=== PATIENT | female | born 1945 | race Caucasian/White ===

== ENCOUNTER 2019-04-19 05:09 | Inpatient (IN) ==
--- NOTE | 2019-04-12 13:54 | EKG Report ---
Test Performed on : 04/12/2019 1:49:34 PM Test Reason : PAT Blood Pressure : / mmHG Vent. Rate : 086 BPM Atrial Rate : 086 BPM P-R Int : 136 ms QRS Dur : 070 ms QT Int : 360 ms P-R-T Axes : 013 028 055 degrees QTc Int : 430 ms Normal sinus rhythm. Poor R-wave progression V3-V5 Abnormal ECG When compared with ECG of 05-JAN-2018 11:21, No significant change was found Confirmed by Hong PRATHER, Venkat Hubbard ([id number]) on 04/12/2019 8:54:31 PM
[2019-04-12 14:11] LABS: BASO# 0.02 X1000 (0.0-0.2); BASO% 0.4 % (0.0-0.8); EOS% 1.8 % (0.0-10.0); HEMOGLOBIN 11.8 g/dL (12.0-16.0); LYMPH# 1.03 X1000 (1.2-3.4); LYMPH% 18.3 % (20.5-51.1); MCH 31.8 PG (27-31); MCHC 32.8 g/dL (33-37); MONO% 14.2 % (1.7-9.3); MPV 9.1 FL (7.4-10.4); NEUT# 3.69 X1000 (1.4-6.5); NEUT% 65.3 % (42.2-75.2); PLT 296 X1000 (130-400); RBC 3.71 XMIL (4.2-5.4); WBC 5.64 X1000 (4.8-10.8)
[2019-04-12 14:40] LABS: CALCIUM 9.4 mg/dL (8.8-10.2); CREATININE 1.4 mg/dL (0.5-0.9); POTASSIUM 4.2 mmol/L (3.5-5.1)
[2019-04-19] MEDS ORDERED: INVANZ 1 GM/NS 1 GM/50 ML IVPB ONE (05:41)
[2019-04-19] MEDS ORDERED: LR 1,000 ML ONE ×2 (05:41→06:40)
[2019-04-19] MEDS ORDERED: ENTEREG ONE (05:41)
[2019-04-19] MEDS ORDERED: REGLAN ONE (05:41)
[2019-04-19] MEDS ORDERED: PEPCID ONE (05:41)
[2019-04-19] MEDS ORDERED: DIPRIVAN 1% ONE (06:07)
[2019-04-19] MEDS ORDERED: FENTANYL ONE (06:07)
[2019-04-19] MEDS ORDERED: QUELICIN (DOSE) ONE (06:19)
[2019-04-19] MEDS ORDERED: STERILE WATER INJ. ONE (06:19)
[2019-04-19] MEDS ORDERED: DECADRON ONE (06:19)
[2019-04-19] MEDS ORDERED: OFIRMEV 1000 MG/ISOTONIC SOLN 1,000 MG/100 ML BOTTLE ONE (06:19)
[2019-04-19] MEDS ORDERED: ZOFRAN ONE (06:19)
[2019-04-19] MEDS ORDERED: XYLOCAINE-MPF 2% ONE (06:19)
[2019-04-19] MEDS ORDERED: NORCURON ONE (06:19)
[2019-04-19] MEDS ORDERED: MARCAINE 0.5% ONE (06:21)
[2019-04-19] MEDS ORDERED: SODIUM CHLORIDE 0.9% 10 ML ONE (06:21)
[2019-04-19] MEDS ORDERED: EXPAREL 1.3% ONE (06:21)
[2019-04-19] MEDS ORDERED: SENSORCAINE 0.25%/EPI 1:200,000 ONE (06:39)
[2019-04-19] MEDS ORDERED: ROBINUL ONE (09:05)
[2019-04-19] MEDS ORDERED: NEOSTIGMINE ONE (09:05)
[2019-04-19 09:47] LABS: URINE SOURCE CATH
[2019-04-19 09:49] LABS: BILIRUBIN URINE NEGATIVE (NEGATIVE); BLOOD URINE NEGATIVE (NEGATIVE); COLOR YELLOW; GLUCOSE URINE NEGATIVE (NEGATIVE); KETONE URINE 10 mg/dL (NEGATIVE); LEUKOCYTES URINE SMALL (NEGATIVE); NITRITE URINE NEGATIVE (NEGATIVE); PH URINE 5.5; PROTEIN URINE NEGATIVE (NEGATIVE); SP GRAVITY URINE 1.021; TURBIDITY URINE CLEAR (CLEAR); UROBILINOGEN URINE NORMAL (NORMAL)
[2019-04-19 09:50] LABS: UR EPITHELIAL CELLS >10 /HPF (<10); URINE BACTERIA NEGATIVE /HPF; URINE RBC <10 /HPF (<10)
[2019-04-19] MEDS: DILAUDID ONE ×2 (11:19→11:22)
--- NOTE | 2019-04-19 11:21 | Diag Imaging Result Doc PS360 ---
EXAM: KUB ABDOMEN HISTORY: MISCOUNT IN OR TECHNIQUE: Portable abdomen three views COMPARISON: None. FINDINGS: There are midline skin tomas. A drainage catheter overlies the pelvis and there is a right lower quadrant ostomy. There are skin tomas in the right upper quadrant. No needle or other foreign body identified. Mild scoliosis with degenerative spine changes. IMPRESSION: No needle identified. Electronically signed by Brenden Mejia 04/19/2019 11:19 AM
[2019-04-19] MEDS ORDERED: NS 1,000 ML ONE (11:32)
[2019-04-19] MEDS: NS 1,000 ML IV SCH ×2 (13:00→23:17)
[2019-04-19] MEDS: OFIRMEV 1000 MG/ISOTONIC SOLN 1,000 MG/100 ML BOTTLE IV SCH ×2 (14:20→21:26)
[2019-04-19] MEDS: LOVENOX SUBQ SCH (14:22)
[2019-04-19] MEDS: ULTRAM PO PRN (18:40)
--- NOTE | 2019-04-19 18:53 | OPERATIVE NOTE ---
PROCEDURE DATE: 04/19/2019 PROCEDURE: 1. Laparoscopy with lysis of adhesions for 1 hour. 2. Mobilization of the splenic flexure. 3. Open low anterior colon resection. 4. Loop diverting ileostomy. 5. Repair of vaginal cuff. SURGEON: Dr. Destin MD. REVENUE INTEGRITY ANALYST: WAQAR Love. PREOPERATIVE DIAGNOSIS: Colovaginal fistula with diverticular disease. POSTOPERATIVE DIAGNOSIS: Colovaginal fistula with diverticular disease with multiple intraabdominal adhesions. DESCRIPTION OF PROCEDURE: Satisfactory general endotracheal anesthesia was achieved. The patient was placed in Edmundo stirrups. The abdomen was prepped and draped in a sterile fashion. We began near the umbilicus, anesthetized the skin, made a vertical incision, dissected down the fascia, scored the fascia, and introduced 11 trocar Optiview technique. We insufflated through this trocar. We were able to work through adhesions and introduced 11 trocar in the midepigastrium. We had to add a 5 trocar in the left side of the abdomen and then began taking adhesions down the back of the abdominal wall. We carefully took these adhesions down. There was 1 spot where we thought we made an enterotomy, so I did laparoscopically place a figure-of-8 3-0 silk stitch, but we continued to dissect the adhesions carefully from the back of the anterior abdominal wall all the way into the pelvis. This took an hour to accomplish that. After completing that, we then introduced a 5 trocar in the right lower quadrant. We placed the patient in Trendelenburg and turned the patient to the right. We then identified the white line of Toldt and used the LigaSure to divide the white line of Toldt going from the pelvic brim cephalad. As we started going up the descending colon, we reversed the patient's position and placed her in reverse Trendelenburg. We kept her turned to the right and we extended our incision all the way up to the splenic flexure. We then pulled the omentum out of the way. I was able to divide the tissue to the transverse colon to allow mobilization of the splenic flexure. We went from proximal to distal toward the splenic flexure; thereby, allowing us to mobilize the splenic flexure and sweep it down so that we would have more distance and more length on the colon as we did our sigmoid resection. When we were satisfied with the mobilization of splenic flexure, we then flattened the patient, desufflated and then switched to an open procedure. We then made a midline incision to incorporate 2 of our trocars sites. We entered the abdominal cavity carefully. We did identify the spot we had placed a silk stitch for the enterotomy and it was secure. We then placed our Bookwalter retractor, placed the patient in Trendelenburg and reflected the small bowel cephalad, and then further dissected the pelvic brim and the left pelvic wall sidewall. We identified the ureter and protected it from harm. On the right side, it was less stuck. We then began dissection behind the bladder and the vaginal cuff. This was quite stuck and we carefully dissected between the colon and these organs until we developed a plane and the colon from the back of the bladder and the vaginal cuff. This completely freed it from the anterior pelvic wall. We then looked into the pelvis and identified a spot in the proximal rectum that we thought would be in appropriate site for the anastomosis. We then scored the peritoneum on the right side and went back proximally to where we felt it would be appropriate to divide the colon we cleaned it off and used a TIMO blue cartridge 80 mm long to divide the colon there. We then used the ligature to divide the mesentery of the colon as we went from cephalad to caudad through the sigmoid mesentery. We continued distally until we reached the distal point of our dissection where we felt it would be appropriate to do the anastomosis. The proximal colon came down to the proximal rectum without tension. We then placed 3-0 silks in a Lembert fashion between the proximal rectum and the proximal colon. We then divided the colon and handed off the diseased segment. We then stitches tied these stitches between the proximal and distal colon. Some of the stitches pull- through indicative of the poor tissue turgor and made me more concerned about appropriate healing. So had added additional stitches to the seromuscular layer posteriorly. After completing that we then excised the staple line proximally. We used a 3-0 Polysorb running locking stitch posteriorly, changed to a [place] stitch anteriorly and finally a 3-0 silks in a Lembert fashion anteriorly to complete our 2-layered anastomosis. We changed gloves at this point. We irrigated out the pelvis. We looked at the back of the vaginal cuff and I placed some 2-0 Polysorb stitches to close the tissue over the vaginal cuff to be sure it was sealed. I then decided at this point, that I would do a diverting ileostomy because of what I felt to be poor tissue turgor and weakness to the tissue and with her history of poor healing, I felt it would be safest to do a diverting loop ileostomy. We then incised the adhesions in between the small bowel loops in the ilium so that we could bring up a loop easily. The site we brought up was the site where we had placed the stitches for the small enterotomy. We did grasp the skin of the right mid abdomen, excised the small hole of skin for stoma, dissected down to the fascia and incised the anterior rectus sheath vertically and a little bit transversely, spread the rectus muscle and then opened the posterior rectus sheath as well. We then were able to deliver the loop of ilium grasping it with a Jonathan without difficulty and without tension. We placed 1 of those butterfly bars underneath the loop. Also, inferior to this, I introduced a hemostat through the abdominal wall and laid a Tres drain into the pelvis. We secured it to the skin with a 2-0 silk. We were satisfied. Hemostasis was acceptable. I looked in the left upper quadrant. It was hemostatic. We then closed the peritoneum with 2-0 chromic. We closed the fascia with a running #2 Prolene. We irrigated out the subcutaneous tissue. We closed the epigastric trocar site with a 2-0 Polysorb fascial stitch. We then closed the skin incisions with tomas. We then placed a flange around the stoma, incised the ilium to open it and then placed the bag over it. A sterile dressing was placed on the midline wound. Ms. Castillo tolerated the procedure satisfactory and was sent to the recovery room in satisfactory condition. cc: Tip Weir MD
[2019-04-19] MEDS: PERIDEX MT SCH (21:27)
[2019-04-19] MEDS: ZOCOR PO SCH (21:27)
--- NOTE | 2019-04-19 22:31 | GENERAL SURGERY PROGRESS NOTE ---
DATE: 04/19/2019 It is 4:30 in the afternoon. Ms. Castillo is sleeping, but she is easily aroused. She is comfortable. Her hemodynamics are good. Bandage is dry. Her stoma is viable. Drainage is serosanguineous. We will check her labs in the morning, but I am pleased with her progress as is she. cc: Tip Weir MD
[2019-04-20] MEDS: OFIRMEV 1000 MG/ISOTONIC SOLN 1,000 MG/100 ML BOTTLE IV SCH ×2 (02:05→09:33)
[2019-04-20] MEDS: ULTRAM PO PRN ×2 (06:02→21:17)
[2019-04-20] MEDS: NS 1,000 ML IV SCH ×3 (07:01→23:20)
[2019-04-20 07:22] LABS: BASO# 0.01 X1000 (0.0-0.2); BASO% 0.1 % (0.0-0.8); EOS# 0.01 X1000 (0.0-0.7); EOS% 0.1 % (0.0-10.0); HEMOGLOBIN 8.8 g/dL (12.0-16.0); LYMPH# 0.77 X1000 (1.2-3.4); LYMPH% 9.4 % (20.5-51.1); MCH 30.1 PG (27-31); MCHC 31.4 g/dL (33-37); MCV 95.9 FL (81-99); MONO# 1.11 X1000 (0.11-0.59); MONO% 13.6 % (1.7-9.3); MPV 9.6 FL (7.4-10.4); NEUT# 6.25 X1000 (1.4-6.5); NEUT% 76.8 % (42.2-75.2); PLT 263 X1000 (130-400); RBC 2.92 XMIL (4.2-5.4); RDW 12.6 % (11.5-14.5); WBC 8.15 X1000 (4.8-10.8)
[2019-04-20 08:18] LABS: AGAP 12; BUN 13 mg/dL (8-22); CALCIUM 7.6 mg/dL (8.8-10.2); CHLORIDE 105 mmol/L (98-107); COSMO 274; CREATININE 0.8 mg/dL (0.5-0.9); ESTIMATED GFR > 60; GLUCOSE 92 mg/dL (70-104); POTASSIUM 3.7 mmol/L (3.5-5.1); SODIUM 137 mmol/L (136-145); TCO2 20 mmol/L (25-35)
[2019-04-20] MEDS: PERIDEX MT SCH ×2 (09:33→21:16)
[2019-04-20] MEDS: VITAMIN D PO SCH (09:33)
[2019-04-20] MEDS: CITRACAL + D PO SCH (09:33)
[2019-04-20] MEDS: PRINZIDE 20/12.5MG PO SCH ×2 (09:33→16:09)
[2019-04-20] MEDS: COLACE PO SCH (09:33)
[2019-04-20] MEDS: THERA M PLUS PO SCH (09:34)
[2019-04-20] MEDS: ENTEREG PO SCH ×2 (09:34→21:17)
[2019-04-20] MEDS: KLOR-CON PO SCH (09:34)
[2019-04-20] MEDS: DILAUDID IV PRN ×2 (09:52→16:07)
[2019-04-20] MEDS: AROMASIN PO SCH (09:52)
--- NOTE | 2019-04-20 13:26 | GENERAL SURGERY PROGRESS NOTE ---
DATE: 04/20/2019 SUBJECTIVE: Ms. Castillo is postop day 1 from a colovaginal fistula repair and ileostomy. Her primary complaint today is her right arm, feeling discomfort and tight. It does not look particularly swollen. She has good radial pulse. OBJECTIVE: Lungs are clear. Heart is regular rate and rhythm. Bandages are dry. Abdomen is appropriately tender. Ileostomy is viable. Drainage is serosanguineous. Legs feel okay. DIAGNOSTIC DATA: Laboratory data reveals a hemoglobin of 8.8, hematocrit 28. Chemistry is fine. ASSESSMENT: Right arm discomfort. This may be the arm she had her blood pressure cuff on. We will image it to be certain she has no DVT. She can have ice chips. Tomorrow, we will get her Patel out. She needs to sit on the side of the bed today. Surgical associates will cover in my absence over the weekend. cc: Tip Weir MD
[2019-04-20] MEDS: LOVENOX SUBQ SCH (16:09)
[2019-04-20] MEDS: ZOFRAN IV PRN (19:07)
[2019-04-20] MEDS: ZOCOR PO SCH (21:16)
--- NOTE | 2019-04-20 22:11 | Extremity Venous Study ---
PROCEDURE NAME: Venous U/S Right Arm - 04/20/2019 BROTH MIXER: Cory. REQUESTING PHYSICIAN: Dr. Weir. INDICATIONS: Pain and edema. FINDINGS: Deep and superficial veins of the right neck and upper extremity were visualized. The vessels appear compressible with forward flow, and no evidence of intraluminal thrombus. SUMMARY: No deep or superficial venous thrombosis in the right upper extremity or neck. cc: MD Tip Fritz MD
[2019-04-21] MEDS: ULTRAM PO PRN ×2 (03:23→15:18)
[2019-04-21] MEDS: ZOFRAN IV PRN (06:47)
[2019-04-21 07:59] LABS: BASO# 0.01 X1000 (0.0-0.2); BASO% 0.1 % (0.0-0.8); EOS# 0.03 X1000 (0.0-0.7); EOS% 0.3 % (0.0-10.0); HEMATOCRIT 28.7 % (37.0-47.0); HEMOGLOBIN 9.2 g/dL (12.0-16.0); IMM GRAN# 0.03 X1000 (0.0-0.04); IMM GRAN% 0.3 % (0.0-0.5); LYMPH# 0.74 X1000 (1.2-3.4); LYMPH% 8.5 % (20.5-51.1); MCH 31.1 PG (27-31); MCHC 32.1 g/dL (33-37); MONO# 0.99 X1000 (0.11-0.59); MONO% 11.3 % (1.7-9.3); MPV 9.5 FL (7.4-10.4); NEUT# 6.93 X1000 (1.4-6.5); NEUT% 79.5 % (42.2-75.2); PLT 259 X1000 (130-400); RBC 2.96 XMIL (4.2-5.4); RDW 12.5 % (11.5-14.5); WBC 8.73 X1000 (4.8-10.8)
[2019-04-21] MEDS: PERIDEX MT SCH ×2 (10:56→21:22)
[2019-04-21] MEDS: COLACE PO SCH (10:56)
[2019-04-21] MEDS: CITRACAL + D PO SCH (10:56)
[2019-04-21] MEDS: VITAMIN D PO SCH (10:56)
[2019-04-21] MEDS: KLOR-CON PO SCH (10:56)
[2019-04-21] MEDS: THERA M PLUS PO SCH (10:58)
[2019-04-21] MEDS: PRINZIDE 20/12.5MG PO SCH (10:58)
[2019-04-21] MEDS: ENTEREG PO SCH ×2 (10:58→21:22)
[2019-04-21] MEDS: AROMASIN PO SCH (11:03)
[2019-04-21] MEDS: NS 1,000 ML IV SCH (13:49)
--- NOTE | 2019-04-21 14:44 | GENERAL SURGERY PROGRESS NOTE ---
DATE: 04/21/2019 SUBJECTIVE: She is doing okay, is a little sore. Ostomy has begun putting out some liquid in there. No more drainage per vagina. Her Patel is clear. OBJECTIVE: No fevers. No tachycardia. I reviewed her labs. White count is 8, hematocrit 28, platelets 259,000. ASSESSMENT AND PLAN: A 74-year-old female status post repair of colovaginal fistula with a diverting loop ileostomy. We will start her on clear liquids, discontinue her Patel catheter today. Encourage her to be out of bed and ambulating. Her ostomy output has begun, but we will monitor for increasing output and start motility agents as needed. I reviewed her medications. She is on Lovenox. We will continue to follow her closely going forward. cc: MD Tip Fritz MD
[2019-04-21] MEDS: LOVENOX SUBQ SCH (15:13)
[2019-04-21] MEDS: ZOCOR PO SCH (21:22)
[2019-04-22] MEDS: ULTRAM PO PRN ×3 (01:46→21:44)
[2019-04-22] MEDS: NS 1,000 ML IV SCH ×2 (03:28→21:45)
[2019-04-22] MEDS: PERIDEX MT SCH ×2 (10:12→21:45)
[2019-04-22] MEDS: THERA M PLUS PO SCH (10:12)
[2019-04-22] MEDS: KLOR-CON PO SCH (10:12)
[2019-04-22] MEDS: VITAMIN D PO SCH (10:12)
[2019-04-22] MEDS: CITRACAL + D PO SCH (10:13)
[2019-04-22] MEDS: AROMASIN PO SCH (10:14)
[2019-04-22] MEDS: PRINZIDE 20/12.5MG PO SCH (10:35)
[2019-04-22] MEDS: LOVENOX SUBQ SCH (12:41)
--- NOTE | 2019-04-22 15:07 | GENERAL SURGERY PROGRESS NOTE ---
DATE: 04/22/2019 SUBJECTIVE: Doing well. Ileostomy output has been high, 600 mL. OBJECTIVE: Her abdomen is soft. She feels well. She is ambulating, tolerating a diet. I reviewed her labs. ASSESSMENT AND PLAN: A 74-year-old female with a colovaginal fistula repair with diverting loop ileostomy. We will monitor ileostomy output. I will stop her Entereg and her Colace. If output remains high, we may need to start Imodium. Otherwise, continue intravenous hydration, strict intakes and outputs. cc: MD Tip Fritz MD
[2019-04-22] MEDS: ZOCOR PO SCH (21:45)
[2019-04-23] MEDS: KLOR-CON PO SCH ×2 (07:54→08:17)
[2019-04-23] MEDS: NS 1,000 ML IV SCH (07:54)
[2019-04-23] MEDS: VITAMIN D PO SCH ×2 (07:54→08:16)
[2019-04-23] MEDS: CITRACAL + D PO SCH ×2 (07:54→08:17)
[2019-04-23] MEDS: THERA M PLUS PO SCH ×2 (07:54→08:17)
[2019-04-23] MEDS: AROMASIN PO SCH ×2 (07:55→08:16)
[2019-04-23] MEDS: PERIDEX MT SCH ×3 (07:55→22:13)
[2019-04-23] MEDS ORDERED: NS 1,000 ML IV SCH (08:13)
[2019-04-23] MEDS: PRINZIDE 20/12.5MG PO SCH (08:16)
--- NOTE | 2019-04-23 12:15 | GENERAL SURGERY PROGRESS NOTE ---
DATE: 04/23/2019 SUBJECTIVE: Ms. Castillo is afebrile. Hemodynamics are good. She does not have much appetite. She has taken liquids satisfactorily. Her ileostomy is functioning her drain is serous in character. Intake 2718, output 2155. PLAN: The plan is to reduce her IV to KVO. We will advance her diet to regular. We will remove her drain today. The ileostomy nurse will see her once again. We will keep her total tomorrow in preparation for a discharge. Home health will have to be involved at discharge. cc: Tip Weir MD
[2019-04-23] MEDS: LOVENOX SUBQ SCH (14:43)
[2019-04-23] MEDS: ULTRAM PO PRN ×2 (14:48→22:13)
[2019-04-23] MEDS: ZOCOR PO SCH (22:13)
[2019-04-24] MEDS ORDERED: FLU VACCINE IM ONE (08:08)
[2019-04-24] MEDS: ULTRAM PO PRN (09:06)
[2019-04-24] MEDS: THERA M PLUS PO SCH (09:06)
[2019-04-24] MEDS: VITAMIN D PO SCH (09:06)
[2019-04-24] MEDS: CITRACAL + D PO SCH (09:06)
[2019-04-24] MEDS: KLOR-CON PO SCH (09:06)
[2019-04-24] MEDS: PERIDEX MT SCH (09:06)
[2019-04-24] MEDS: PRINZIDE 20/12.5MG PO SCH ×2 (09:06→09:07)
[2019-04-24] MEDS: AROMASIN PO SCH (09:07)
[2019-04-24 11:42] VITALS: BP 116/59
--- NOTE | 2019-04-24 12:21 | GENERAL SURGERY PROGRESS NOTE ---
DATE: 04/24/2019 She took some solid food yesterday. Her ileostomy is functioning. Her wound looks fine. She is afebrile. We will allow her to go home today after the stoma nurse sees her. We discussed wound care, activity, and diet. She will return to see me in a week. cc: Tip Weir MD
--- NOTE | 2019-04-30 15:04 | DISCHARGE SUMMARY ---
ADMISSION DATE: 04/19/2019 DISCHARGE DATE: 04/24/2019 PRIMARY DISCHARGE DIAGNOSIS: Colovaginal fistula. PRIMARY PROCEDURE: Laparoscopy, lysis of adhesions, mobilization of splenic flexure, open low anterior colon resection and diverting loop ileostomy, repair of vaginal cuff. HOSPITAL COURSE: This patient was admitted due to a colovaginal fistula. She underwent outpatient prep. She was admitted the morning of the 19 of April. She underwent the above- noted procedure uneventfully. Postoperatively, she did generally well. We did place a drain at the time of her surgery. She had only serosanguineous output. On the first postoperative day, she complained some arm discomfort and venous image showed no evidence of DVT. We felt this is probably just due to the blood pressure cuff. We started on clear liquids. She started putting out through her ileostomy satisfactorily. We removed her Patel on the second postoperative day. We advanced her diet subsequently and mobilized from bed. By 04/24, it was felt she could be discharged home. The stoma nurse it had seen her and educated her regarding her ileostomy. Her wound was fine. DISPOSITION: She was discharged home on the to follow up with me within a week. Home health will assist her with her ileostomy at home. cc: Tip Weir MD
== END 2019-04-24 12:09 | disposition home health service (06) | DRG 331 ==
LOC: SURHOLD 05:09 → 4N 11:57
PROVIDERS: ADMIT Surgery; ATTEND Surgery
PROC: GE.COLS (2019-04-19 06:51)

== ENCOUNTER 2019-04-26 13:38 | Inpatient (IN) ==
[2019-04-26] MEDS ORDERED: MORPHINE IV PRN (14:32)
[2019-04-26] MEDS: PHENERGAN IV PRN ×2 (15:17→20:59)
[2019-04-26] MEDS: REGLAN IV SCH ×2 (15:18→20:42)
[2019-04-26] MEDS: SODIUM CHLORIDE 0.9% INJ PRN (15:19)
[2019-04-26] MEDS ORDERED: CLINIMIX E 4.25%-5% SOLUTION 1,000 ML IV SCH (17:00)
[2019-04-26] MEDS: ULTRAM PO PRN (18:11)
[2019-04-26] MEDS: NS + KCL 20 MEQ 1,000 ML IV SCH (18:13)
[2019-04-27] MEDS: PHENERGAN IV PRN ×3 (03:26→17:06)
[2019-04-27] MEDS: REGLAN IV SCH ×4 (03:27→20:58)
[2019-04-27 06:36] LABS: URINE SOURCE CLEAN CATCH
[2019-04-27 06:39] LABS: BILIRUBIN URINE NEGATIVE (NEGATIVE); BLOOD URINE NEGATIVE (NEGATIVE); CLARITY CLEAR (CLEAR); COLOR YELLOW; GLUCOSE URINE NEGATIVE (NEGATIVE); KETONE URINE NEGATIVE (NEGATIVE); LEUKOCYTES URINE NEGATIVE (NEGATIVE); NITRITE URINE NEGATIVE (NEGATIVE); PROTEIN URINE NEGATIVE (NEGATIVE); SP GRAVITY URINE >= 1.030; UROBILINOGEN URINE 0.2 EU/dL (0.2-1.0)
[2019-04-27 06:49] LABS: URINE EPITHELIAL CELLS <10 /HPF (<10); URINE RBC <10 /HPF (<10)
[2019-04-27 06:50] LABS: URINE BACTERIA 2+ /HFP; URINE CAST NONE SEEN /LPF; URINE CRYSTAL NONE SEEN /HPF; URINE YEAST PRESENT /HPF
[2019-04-27 07:09] LABS: BASO# 0.01 X1000 (0.0-0.2); BASO% 0.1 % (0.0-0.8); EOS# 0.06 X1000 (0.0-0.7); EOS% 0.6 % (0.0-10.0); HEMOGLOBIN 11.4 g/dL (12.0-16.0); IMM GRAN# 0.08 X1000 (0.0-0.04); IMM GRAN% 0.8 % (0.0-0.5); LYMPH# 0.99 X1000 (1.2-3.4); LYMPH% 9.6 % (20.5-51.1); MCH 31.1 PG (27-31); MCHC 32.6 g/dL (33-37); MCV 95.6 FL (81-99); MONO# 1.18 X1000 (0.11-0.59); MONO% 11.4 % (1.7-9.3); MPV 9.5 FL (7.4-10.4); NEUT# 8.01 X1000 (1.4-6.5); NEUT% 77.5 % (42.2-75.2); PLT 518 X1000 (130-400); RBC 3.66 XMIL (4.2-5.4); RDW 13.6 % (11.5-14.5); WBC 10.33 X1000 (4.8-10.8)
[2019-04-27 07:22] LABS: AGAP 14; BUN 23 mg/dL (8-22); CALCIUM 9.6 mg/dL (8.8-10.2); CHLORIDE 99 mmol/L (98-107); COSMO 281; CREATININE 0.9 mg/dL (0.5-0.9); ESTIMATED GFR > 60; GLUCOSE 120 mg/dL (70-104); POTASSIUM 3.8 mmol/L (3.5-5.1); SODIUM 138 mmol/L (136-145); TCO2 25 mmol/L (25-35)
[2019-04-27] MEDS: NS + KCL 20 MEQ 1,000 ML IV SCH (07:32)
[2019-04-27] MEDS: SODIUM CHLORIDE 0.9% INJ PRN (09:30)
--- NOTE | 2019-04-27 13:54 | GENERAL SURGERY PROGRESS NOTE ---
DATE: 04/27/2019 Ms. Castillo is feeling a little bit better. Still has some nausea. Her hemodynamics are okay. OBJECTIVE: She is afebrile, heart rate 77, blood pressure 122/59. Her bowel sounds are present. She is putting liquid out her ileostomy bag. LABORATORY DATA: Shows a white count 65456, hemoglobin 11.4. Potassium 3.8, chloride 99, BUN 23, creatinine 0.9. PLAN: Increase her Clinimix. Decrease her regular IV fluids. She has clear liquids as she desires. We will order some IV Protonix. Dr. Ricardo is to cover the weekend. cc: Tip Weir MD
[2019-04-27] MEDS: CLINIMIX E 4.25%-5% SOLUTION 1,000 ML IV SCH (14:19)
[2019-04-27] MEDS: PROTONIX IV SCH (14:28)
[2019-04-28] MEDS: REGLAN IV SCH ×4 (03:00→20:09)
[2019-04-28] MEDS: CLINIMIX E 4.25%-5% SOLUTION 1,000 ML IV SCH ×2 (03:59→15:09)
[2019-04-28 06:08] LABS: BASO# 0.02 X1000 (0.0-0.2); BASO% 0.2 % (0.0-0.8); EOS% 4.5 % (0.0-10.0); HEMATOCRIT 31.8 % (37.0-47.0); HEMOGLOBIN 10.4 g/dL (12.0-16.0); LYMPH# 0.87 X1000 (1.2-3.4); LYMPH% 9.7 % (20.5-51.1); MCHC 32.7 g/dL (33-37); MCV 97.8 FL (81-99); MONO# 1.33 X1000 (0.11-0.59); MONO% 14.8 % (1.7-9.3); MPV 9.2 FL (7.4-10.4); NEUT# 6.35 X1000 (1.4-6.5); NEUT% 70.8 % (42.2-75.2); PLT 426 X1000 (130-400); RBC 3.25 XMIL (4.2-5.4); RDW 13.6 % (11.5-14.5); WBC 8.97 X1000 (4.8-10.8)
[2019-04-28 06:14] LABS: AGAP 11; BUN 25 mg/dL (8-22); CALCIUM 8.8 mg/dL (8.8-10.2); CHLORIDE 100 mmol/L (98-107); COSMO 270; CREATININE 0.8 mg/dL (0.5-0.9); ESTIMATED GFR > 60; GLUCOSE 117 mg/dL (70-104); POTASSIUM 4.2 mmol/L (3.5-5.1); SODIUM 132 mmol/L (136-145); TCO2 21 mmol/L (25-35)
[2019-04-28] MEDS ORDERED: TYLENOL PO PRN (07:59)
--- NOTE | 2019-04-28 09:22 | PROGRESS NOTE ---
DATE: 04/28/2019 SUBJECTIVE: Ms. Lilliana Castillo is a patient Dr. Weir, who had a low anterior colon resection with diverting loop ileostomy. She has had to be readmitted because of postoperative ileus. She still has some abdominal distention, but she is tolerating liquids and would like her diet advanced. She is receiving peripheral nutrition. All incisions are healing well. Her ileostomy is somewhat swollen, but it is functional with fluid output. OBJECTIVE: Her heart rate is 78, blood pressure 122/63, O2 saturation 97%. She is afebrile. DIAGNOSTIC DATA: Her white blood cell count is normal. Hematocrit is 32%. Electrolytes are within normal limits with a BUN of 25 and creatinine 0.8. PLAN: We will advance her diet. We will leave her peripheral nutrition going at this time and increase her activity. cc: MD Tip Brannon MD
[2019-04-28] MEDS: SODIUM CHLORIDE 0.9% INJ SCH (15:11)
[2019-04-28] MEDS: PROTONIX IV SCH (15:11)
[2019-04-28] MEDS: NS + KCL 20 MEQ 1,000 ML IV SCH (18:45)
[2019-04-28] MEDS: PHENERGAN IV PRN (18:58)
[2019-04-28] MEDS: ULTRAM PO PRN (22:21)
[2019-04-29] MEDS: REGLAN IV SCH ×4 (02:33→20:14)
[2019-04-29] MEDS: CLINIMIX E 4.25%-5% SOLUTION 1,000 ML IV SCH ×3 (05:58→19:05)
--- NOTE | 2019-04-29 09:42 | PROGRESS NOTE ---
DATE: 04/29/2019 Ms. Lilliana Castillo is status post colon resection for a colovaginal fistula per Dr. Weir. She has diverting loop ileostomy. This ileostomy is functioning but she is not eating that well. She is on peripheral fluids and nutrition. Her incision is healing well and her ostomy looks good and it is viable. Her abdomen is mostly soft. Her heart rate is 90, blood pressure 117/64, O2 saturation 99%. She is afebrile. She is on a regular diet that I started yesterday. She has not eaten much. She is still on peripheral nutrition. She is becoming more active. She is voiding on her own. cc: MD Tip Brannon MD
[2019-04-29] MEDS: PROTONIX IV SCH (12:57)
[2019-04-29] MEDS: SODIUM CHLORIDE 0.9% INJ SCH (16:44)
[2019-04-29] MEDS: ULTRAM PO PRN (16:44)
[2019-04-29] MEDS: PHENERGAN IV PRN (16:44)
[2019-04-29] MEDS: NS + KCL 20 MEQ 1,000 ML IV SCH (20:15)
[2019-04-30] MEDS: REGLAN IV SCH ×5 (01:58→22:16)
[2019-04-30] MEDS: MEGACE LIQUID PO SCH ×2 (08:58→22:16)
--- NOTE | 2019-04-30 08:59 | GENERAL SURGERY PROGRESS NOTE ---
DATE: 04/30/2019 SUBJECTIVE: Ms. Castillo says she feels better. She is less nauseated then she was. Her appetite is still not very good. OBJECTIVE: Her abdomen is soft, and negligibly tender. Her hemodynamics are good. She is putting stool into her ileostomy. PLAN: The plan will be to get an x-ray of her abdomen today and I will put her on appetite stimulant in hopes of possibly getting her out by tomorrow. cc: Tip Weir MD
[2019-04-30] MEDS: LOVENOX SUBQ SCH (09:03)
[2019-04-30] MEDS: ULTRAM PO PRN (12:54)
[2019-04-30] MEDS: PROTONIX IV SCH (13:01)
[2019-04-30] MEDS: PHENERGAN IV PRN (13:01)
[2019-04-30] MEDS: CLINIMIX E 4.25%-5% SOLUTION 1,000 ML IV SCH (13:01)
[2019-05-01] MEDS: REGLAN IV SCH ×2 (05:46→08:39)
[2019-05-01] MEDS: CLINIMIX E 4.25%-5% SOLUTION 1,000 ML IV SCH (05:55)
[2019-05-01 07:42] VITALS: BP 117/66
--- NOTE | 2019-05-01 08:02 | GENERAL SURGERY PROGRESS NOTE ---
DATE: 05/01/2019 SUBJECTIVE: Ms. Castillo says she feels better. She still has some nausea but she is taking more by mouth. Her x-ray is ordered for this morning. PLAN: Tentatively plan to let her go home this afternoon with some antinausea medication. Her tomas will be removed today. cc: Tip Weir MD
[2019-05-01] MEDS: LOVENOX SUBQ SCH (08:38)
[2019-05-01] MEDS: MEGACE LIQUID PO SCH (08:39)
--- NOTE | 2019-05-01 09:00 | Diag Imaging Result Doc PS360 ---
EXAM: FLAT/UPRIGHT ABD/1 VIEW CHEST 05/01/2019 HISTORY: post op nausea; ileus TECHNIQUE: Flat and upright abdomen with PA chest COMMENT: There are surgical skin clips in the midline over the pelvis and in the right upper mid and right upper quadrant of the abdomen. The distended small bowel loops which were demonstrated on 04/26/2019 have diminished. There is no evidence of organomegaly or mass. There is some apparent gas in the distal colon. There are surgical clips in both axillary regions. The heart size and pulmonary vascularity are within normal limits. The lungs appear to be clear and are much better expanded than on 02/25/2012. IMPRESSION: Improving ileus. Electronically signed by Manuel Loving 05/01/2019 8:57 AM
[2019-05-01] MEDS: PROTONIX IV SCH (13:02)
[2019-05-01] MEDS: SODIUM CHLORIDE 0.9% INJ SCH (13:02)
--- NOTE | 2019-05-15 06:51 | DISCHARGE SUMMARY ---
ADMISSION DATE: 04/26/2019 DISCHARGE DATE: 05/01/2019 PRIMARY DISCHARGE DIAGNOSIS: Postoperative ileus with nausea and vomiting. HISTORY: This is a pleasant 74-year-old white female, who underwent a laparoscopy lysis of adhesions, mobilization of splenic flexure, low anterior colon resection, loop diverting ileostomy, and repair of vaginal cuff for a colovaginal fistula on 04/19/2019. She was discharged, but at home has failed to thrive and has developed increasing nausea and vomiting. Therefore, we are readmitting her to the hospital due to her vomiting, and inability to eat. Following her admission, she was placed for IV hydration. We gave her nausea medication including scheduling Reglan. We did put her on Clinimix for nutrition. We also put her on IV Protonix. We gave her clear liquids as she desired as initially she did not want any. Her white count was normal. Over the course of the 5 days of hospitalization, she gradually improved with regarding her nausea. She did put out some liquid in her ileostomy. We did give her an appetite stimulant to help assist with this. By 05/01 because of her progress and her inability to hold down food, and to control her nausea it was felt she could be discharged home. She will be given Phenergan to take home because this seems to work the best for her. We will order an appetite stable at home if needed. She will return to see me in the office in followup. Her ileostomy continues to function satisfactorily. cc: Tip Weir MD
== END 2019-05-01 13:42 | disposition home or self-care (01) | DRG 394 ==
LOC: DIRADM 13:38 → EDIPHOLD 14:00 → 4N 17:39
PROVIDERS: ADMIT Surgery; ATTEND Surgery

== ENCOUNTER 2019-05-29 10:04 | Inpatient (IN) ==
[2019-05-29] MEDS ORDERED: BENTYL IM ONE (10:29)
[2019-05-29] MEDS ORDERED: NS 1,000 ML IV ONE ×2 (10:29→12:06)
[2019-05-29] MEDS ORDERED: ZOFRAN IV ONE (10:29)
[2019-05-29] MEDS ORDERED: MORPHINE IV ONE (10:29)
--- NOTE | 2019-05-29 11:13 | Diag Imaging Result Doc PS360 ---
CHEST-PORTABLE - 05/29/2019 INDICATION: Upper abdominal pain COMPARISON: 05/01/2019 FINDINGS: Stable findings of bilateral mastectomy and bilateral axillary lymphadenectomy. Stable surgical suture lines in the right upper lobe. The lungs are clear. Heart size is normal. No pneumothorax or pleural effusion. IMPRESSION: No acute disease. Electronically signed by Ortiz Martin 05/29/2019 11:11 AM
[2019-05-29 11:23] LABS: INR 1.11; PROTIME 14.4 Seconds (11.0-16.0)
[2019-05-29 11:25] LABS: BASO# 0.01 X1000 (0.0-0.2); BASO% 0.1 % (0.0-0.8); HEMATOCRIT 44.3 % (37.0-47.0); HEMOGLOBIN 15.7 g/dL (12.0-16.0); IMM GRAN# 0.09 X1000 (0.0-0.04); IMM GRAN% 0.7 % (0.0-0.5); LYMPH# 0.76 X1000 (1.2-3.4); LYMPH% 5.6 % (20.5-51.1); MCH 31.2 PG (27-31); MCHC 35.4 g/dL (33-37); MCV 87.9 FL (81-99); MONO# 0.83 X1000 (0.11-0.59); MONO% 6.1 % (1.7-9.3); NEUT# 11.86 X1000 (1.4-6.5); NEUT% 87.5 % (42.2-75.2); PLT 489 X1000 (130-400); RBC 5.04 XMIL (4.2-5.4); RDW 12.7 % (11.5-14.5); WBC 13.55 X1000 (4.8-10.8)
[2019-05-29 11:56] LABS: ALB/GLOB RATIO 1.7; ALBUMIN 5.7 g/dL (3.5-5.0); CALCIUM 11.2 mg/dL (8.8-10.2); CREATININE 4.6 mg/dL (0.5-0.9); MAGNESIUM 2.5 mg/dL (1.5-2.7); TOTAL BILIRUBIN 0.75 mg/dL (0.20-1.00); TOTAL PROTEIN 9.1 g/dL (6.3-8.3)
[2019-05-29] MEDS ORDERED: ZOSYN 3.375 GM in NS 50 ML IV ONE (12:06)
[2019-05-29] MEDS ORDERED: VANCOMYCIN 1 GM/NS 1 GM/250 ML IVPB IV ONE (12:07)
--- NOTE | 2019-05-29 12:36 | Diag Imaging Result Doc PS360 ---
CT ABDOMEN/PELVIS W/O CONTRAST - 05/29/2019 INDICATION: abd pain, acute kidney injury COMPARISON: 02/08/2019 FINDINGS: There are numerous air cysts in the lung bases bilaterally with thin grajeda. No infiltrates. There is some stable scarring in the right lower lobe. Heart size is normal with no pericardial effusion. There are stable cholecystectomy changes. There is a new right lower quadrant loop ileostomy. No bowel obstruction or inflammation. No constipation. No radiodense renal stones. No hydronephrosis or hydroureter. Abdominal organs are otherwise normal. Uterus is absent. Urinary bladder and rectum are normal. There are advanced degenerative changes of the spine and sacroiliac joints. No acute or suspicious bony lesion. IMPRESSION: 1. No acute process in the abdomen. 2. 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 Stable since prior. This exam was performed using automated exposure control, adjustment of mA or kV according to patient size, and/or use of iterative reconstruction technique Electronically signed by Ortiz Martin 05/29/2019 12:33 PM
[2019-05-29 12:48] LABS: URINE SOURCE CATH
[2019-05-29 12:52] LABS: BILIRUBIN URINE NEGATIVE (NEGATIVE); BLOOD URINE TRACE (NEGATIVE); COLOR YELLOW; GLUCOSE URINE NEGATIVE (NEGATIVE); KETONE URINE NEGATIVE (NEGATIVE); LEUKOCYTES URINE MODERATE (NEGATIVE); NITRITE URINE NEGATIVE (NEGATIVE); PH URINE 5.5; PROTEIN URINE 50 mg/dL (NEGATIVE); SP GRAVITY URINE 1.016; TURBIDITY URINE HAZY (CLEAR); UROBILINOGEN URINE NORMAL (NORMAL)
--- NOTE | 2019-05-29 13:10 | EKG Report ---
Test Performed on : 05/29/2019 11:10:17 AM Test Reason : ED. No order in [place] Blood Pressure : / mmHG Vent. Rate : 094 BPM Atrial Rate : 094 BPM P-R Int : 134 ms QRS Dur : 070 ms QT Int : 384 ms P-R-T Axes : 025 046 087 degrees QTc Int : 480 ms Normal sinus rhythm. Low voltage QRS Borderline ECG When compared with ECG of 12-APR-2019 13:49, QT has lengthened Unconfirmed Result
--- NOTE | 2019-05-29 13:17 | PROVIDER DOCUMENTATION ---
This chart was entered by Pushpa Willson Scribe, acting as scribe for Sanjeev Gomes MD. HPI-Abdominal Pain/GI Problem - General Chief Complaint: Nausea/Vomiting Stated Complaint: ABD PAIN,VOMITING,NAUSEA Time Seen by Provider: 05/29/19 10:19 Source: patient Allergies/Adverse Reactions: Patient Allergies Allergy/AdvReac Type Severity Reaction Status Date / Time codeine [Codeine] Allergy Mild NAUSEA Verified 05/29/19 10:37 Home Medications: Home Medication List Medication Instructions Recorded Confirmed Last Taken Type Calcium Citrate/Vitamin D 1 each PO DAILY 03/24/12 05/29/19 04/25/19 12:00 History [Citracal + D] Multivitamin [Multivitamins] 1 each PO DAILY 03/24/12 05/29/19 04/25/19 12:00 History Potassium Chloride [K-Dur] 10 meq PO DAILY 03/24/12 05/29/19 04/25/19 12:00 History Cholecalciferol (Vitamin D3) 1,000 unit PO DAILY 01/05/18 05/29/19 04/25/19 12:00 History [Vitamin D3] Lisinopril/Hydrochlorothiazide 1 each PO DAILY 01/05/18 05/29/19 04/19/19 12:00 History [Lisinopril-Hctz 20-12.5 mg Tab] SIMVAstatin [Zocor] 40 mg PO QHS 01/05/18 05/29/19 04/25/19 21:00 History Exemestane [Aromasin] 25 mg PO DAILY 04/12/19 05/29/19 04/25/19 12:00 History Calcium Crb,Cit/D3/Min34/Juan Jose 1 tab PO DAILY 05/29/19 05/29/19 Unknown History [Citracal + Bone Density Tablet] - History of Present Illness-ABD Nature of Presenting Problems: Patient is a 74 year old female who presents with generalized lower abdominal pain. States nausea, vomiting and weakness with abdominal pain. Reports symptoms started 3 days ago. Denies fever. 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 Reports taking nausea medication at home with no relief. Abdominal Pain Onset Location: reports: other (generalized lower) Pain Radiation: reports: no radiation Quality of Pain: reports: aching Severity in ED: reports: mild Onset/Duration: reports: 3 days ago Timing: reports: still present Activities at Onset: reports: light activity Associated Symptoms: reports: nausea, vomiting, weakness Bruising or Bleeding Gums?: No Similar Symptoms Previously?: Yes Recently seen or treated by another doctor?: No Review of Systems - Adult - REVIEW OF SYSTEMS - ADULT Constitutional: reports: no symptoms reported. denies: chills, fever, fatique Eyes: reports: no symptoms reported Ears, Nose, Mouth & Throat: reports: no symptoms reported Cardiovascular: reports: no symptoms reported Respiratory: reports: no symptoms reported Gastrointestinal: reports: see HPI, abdominal pain (generalized lower), nausea, vomiting. denies: diarrhea Genitourinary: reports: no symptoms reported Musculoskeletal: reports: see HPI, muscle weakness. denies: back pain, neck pain Integumentary: reports: no symptoms reported Neurological: reports: no symptoms reported Psychiatric: reports: no symptoms reported Endocrine: reports: no symptoms reported Hematologic/Lymphatic: reports: no symptoms reported Allergic/Immunologic: reports: no symptoms reported All Other Systems: Reviewed and Negative Past History - Adult - PAST MEDICAL HISTORY-ADULT Review of Records: reports: Old Records Reviewed, Nursing Assessment Review, Medications Reviewed, Social history reviewed & non-contributory. Major Childhood Illnesses: reports: denies history Cardiovascular: reports: HTN Respiratory: reports: denies history Gastrointestinal: reports: denies history Obstetrical/Gynecological: reports: denies history Genitourinary: reports: denies history Musculoskeletal: reports: denies history Neurological: reports: denies history Endocrine/Immune: reports: denies history Other Conditions: reports: other cancer (breast) - PRIOR SURGERIES/PROCEDURES Surgical/Procedure History: reports: reviewed, not pertinent, other (ileostomy) - IMMUNIZATION STATUS Childhood Immunizations: See Nurse Assessment Flu Vaccine: See Nurse Assessment - FAMILY HISTORY Family History: reviewed, not pertinent - SOCIAL HISTORY Smoking: denies Substance Use: denies Living Situation: family Physical Exam-General - PHYSICAL EXAM-ADULT Initial Vital Signs Reviewed: Yes - CONSTITUTIONAL General Appearance: alert, no apparent distress, anxious. negative: lethargic - HEAD, EARS, NOSE, MOUTH & THROAT HENMT: normocephalic/atraumatic, other (dry mucous membranes). negative: angioedema - RESPIRATORY Respiratory: chest non-tender, increased rate. negative: rales, rhonchi, wheezing - CARDIOVASCULAR Cardiovascular: normal peripheral pulses, tachycardia. negative: systolic murmur - GASTROINTESTINAL (ABDOMEN) Abdominal Exam: soft, abnormal bowel sounds (hyperactive bowel sounds.), tenderness (RUQ and LUQ), other (ileostomy to right mid abdomen with brown stool present.). negative: guarding, rebound - MUSCULOSKELETAL Extremity: normal inspection. negative: deformity, erythema - SKIN Integumentary: normal color, normal turgor, warm/dry. negative: diaphoresis, pallor - NEUROLOGIC Neurologic: grossly normal. negative: aphasia, facial droop - PSYCHIATRIC Psych/Mental Status: oriented x 3, anxious. negative: paranoid, tearful Progress - PLAN OF CARE/RESULTS Progress/Plan/Lab Results: Vital Signs - 8 hr 05/29/19 10:07 Temperature 97.8 F Pulse Rate 114 H Respiratory Rate 20 Blood Pressure 124/78 O2 Sat by Pulse Oximetry 99 Result Diagrams: 05/29/19 10:41 05/29/19 10:41 - REASSESSMENT Reassessment #1 Time Reassessed: 12:53 Status: improving (GIven 30ml/kg NS bolus, IV Zosyn/Vanco for abdominal cause of sepsis and as patient has had multiple repeat hospitalizations. Patient has ARF, as a review of prior renal functions in the chart show normal renal function. Has apparent UTI, but not likely source of sepsis. Will consult Dr. Tere Weir, her surgeon and ask hospitalist to admit patient.) - EKG 1 Time of EKG reading by physician:: 11:10 EKG Read and Signed by:: Sanjeev Gomes EKG Interpretation (*Must complete 3 of following elements*): Abnormal Rate: 94 Rhythm: normal sinus rhythm [place]: normal QRS: other (low voltage) [place] Interval: normal Comments: borderline ECG - XRAY 1 XRAY Study: Chest Impression: See EMR Report ( CHEST-PORTABLE - 05/29/2019 INDICATION: Upper abdominal pain COMPARISON: 05/01/2019 FINDINGS: Stable findings of bilateral mastectomy and bilateral axillary lymphadenectomy. Stable surgical suture lines in the right upper lobe. The lungs are clear. Heart size is normal. No pn eumothorax or pleural effusion. IMPRESSION: No acute disease. Electronically signed by Ortiz Martin 05/29/2019 11:11 AM 05/29/19 1111 Interpreting Physician: Ortiz Martin MD Dictated Date/Time: 05/29/19 1110 cc: Sanjeev Gomes MD; Shayla Ronquillo MD) - CT/MRI 1 CT Study: Abdomen Impression: Abnormal (Signed CT ABDOMEN/PELVIS W/O CONTRAST - 05/29/2019 INDICATION: abd pain, acute kidney injury COMPARISON: 02/08/2019 FINDINGS: There are numerous air cysts in the lung bases bilaterally with thin grajeda. No infiltrates. There is some stable scarring in the right lower lobe. Heart size is normal with no pericardial effusion. There are stable cholecystectomy changes. There is a new right lower quadrant loop ileostomy. No bowel obstruction or inflammation. No constipation. No radiodense renal stones. No hydronephrosis or hydroureter. Abdominal organs are otherwise normal. Uterus is absent. Urinary bladder and rectum are normal. There are advanced degenerative changes of the spine and sacroiliac joints. No acute or suspicious bony lesion. IMPRESSION: 1. No acute process in the abdomen. 2. 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 Stable since prior. This exam was performed using automated exposure control, adjustment of mA or kV according to patient size, and/or use of iterative reconstruction technique Electronically signed by Ortiz Martin 05/29/2019 12:33 PM 05/29/19 1233 Interpreting Physician: Ortiz Martin MD Dictated Date/Time: 05/29/19 1230 cc: Sanjeev Gomes MD; Shayla Ronquillo MD), See EMR Report - CONSULTS/PCP/HOSPITALIST Notification #1 *Consult/PCP/Hospitalist*: Tere Weir paged at 1250 Time Discussed: 13:15 Reason/Comments: Dr. Gomes consulted with Dr. Weir about patient. Consult Disposition: other #2 Consult: BISMARK Baker paged at 1250 Time Discussed: 13:02 (Dr. Gordon accepted admit ) Reason/Comments: Dr. Gomes consulted with Olivia about patient. Consult Disposition: Will see in ED, Admit Departure - Departure Date of Disposition Decision: 05/29/19 Time of Disposition Decision: 12:58 DIAGNOSIS: Abdominal pain, vomiting, and diarrhea, UTI (urinary tract infection), bacterial Sepsis with acute renal failure and medullary necrosis without septic shock Qualifiers: Sepsis type: sepsis due to unspecified organism Qualified Code(s): A41.9 - Sepsis, unspecified organism; R65.20 - Severe sepsis without septic shock; N17.2 - Acute kidney failure with medullary necrosis Disposition: ADMITTED INPATIENT 09 Certified Medical Emergency: Emergent Condition: Stable Referrals and Follow-Ups: [facility] [Outside] Shayla Ronquillo MD [Primary Care Provider] - - Critical Care Note This patient required my direct & personal management of CC.: Yes Total Time (mins): 45 (Mult consults, ID of sepsis, care of ARF) Critical Care Statement: This patient required my direct personal management to treat or rule out processes, the absence of which, could potentiallly result in sudden, clinically significant life or limb threatening deterioration. Attestation - Physician/ JULIÁN Attestation Patient care was provided by Advanced Practice Provider:: No The physician spent face to face time with patient:: Yes Advanced Practice Provider documentation review:: Supervising physician onsite a nd consulted in the evaluation and care of this patient. The physician did have a face to face encounter with the patient. Sepsis: Tissue Perfusion Assmt - Physical Exam Assessment Date: 05/29/19 Time Assessment Initialized: 12:57 Vital Signs: Last Vital Signs Temp 97.8 F 05/29/19 10:07 Pulse 89 05/29/19 12:00 Resp 12 05/29/19 12:00 BP 136/89 05/29/19 12:00 Pulse Ox 98 05/29/19 12:00 Height 5 ft Weight 54.431 kg Lung Sounds:: lungs clear Heart Sounds:: Regular Capillary Refill Time: Less Than 2 Seconds Peripheral Pulse Evaluation:: radial (R): 2+, radial (L): 2+ Skin Exam:: pink, turgor good - Impression Impression:: Tissue Perfusion Adequate - Plan Plan:: See Orders Comment: 05/29/19 12:58 admit, monitor UOP This chart was documented by the indicated scribe, (Pushpa Willson Scribe) and accurately reflects the services I performed and decisions made by me, Sanjeev Gomes MD, as attested by the provider's signature.
[2019-05-29 13:19] LABS: UR EPITHELIAL CELLS <10 /HPF (<10); URINE BACTERIA NEGATIVE /HPF; URINE RBC <10 /HPF (<10)
[2019-05-29 13:31] LABS: URINE YEAST NONE SEEN
[2019-05-29] MEDS ORDERED: ZOFRAN IV PRN (15:25)
[2019-05-29] MEDS ORDERED: PHENERGAN PR PRN (15:25)
[2019-05-29] MEDS ORDERED: PHENERGAN PO PRN (15:25)
[2019-05-29 16:48] LABS: URINE SOURCE CATH
[2019-05-29] MEDS: NS 1,000 ML IV SCH (16:51)
--- NOTE | 2019-05-29 16:51 | GENERAL SURGERY CONSULTATION ---
DATE: 05/29/2019 HISTORY OF PRESENT ILLNESS: Ms. Castillo is a pleasant lady, well-known to me from previous surgery 6 weeks ago. She had a history of a colovaginal fistula. We repaired this with a low anterior colon resection. Because of the tenuousness of the anastomosis, I felt a diverting ileostomy would be the safest and we did that. Postoperatively, she did well. She did require readmission for an ileus which ultimately resolved and has been doing okay until recently. Last weekend she developed nausea and vomiting. This affected her p.o. intake. She continued to have ileostomy output and developed what appears to be dehydration with acute renal insufficiency. PAST MEDICAL HISTORY: Pertinent for breast cancer and delayed healing due to poor wound healing. She also has a history of some hypertension and hypercholesterolemia. SOCIAL HISTORY: She rarely drinks alcohol. Denies tobacco usage. She is still employed. MEDICATIONS: Include Aromasin, simvastatin, lisinopril/hydrochlorothiazide, potassium, and vitamins. FAMILY HISTORY: Pertinent for heart disease, thyroid trouble, diabetes. REVIEW OF SYSTEMS: Otherwise negative in all other subsystems. PHYSICAL EXAMINATION: Vital Signs: She is afebrile. Heart rate 92, blood pressure 119/64. Neck: No cervical adenopathy. Lungs: Bilateral breath sounds. Heart: Regular rate and rhythm. Abdomen: Soft. Ileostomy is healthy with satisfactory output. Her midline wound is healing satisfactorily. Extremities: There is no peripheral edema. Neurologic: She is awake and alert. LABORATORY: White count 13,500, hemoglobin 15.7, hematocrit 44. Sodium 126, chloride 83, BUN 91, creatinine 4.6, lactate 2.3. Specific gravity of her urine is 1.016. Moderate urine leukocytes. ASSESSMENT: Intravascular volume depletion with acute kidney injury. PLAN: The CAT scan does not show any evidence of intra-abdominal process. Ileostomy is functioning satisfactorily. I would simply recommend rehydration which should correct her acute kidney injury. We will not consider her for ileostomy reversal until July. cc: Tip Weir MD
[2019-05-29 17:08] LABS: BILIRUBIN URINE NEGATIVE (NEGATIVE); BLOOD URINE NEGATIVE (NEGATIVE); COLOR YELLOW; GLUCOSE URINE NEGATIVE (NEGATIVE); KETONE URINE NEGATIVE (NEGATIVE); LEUKOCYTES URINE NEGATIVE (NEGATIVE); NITRITE URINE NEGATIVE (NEGATIVE); PH URINE 5.5; PROTEIN URINE 30 mg/dL (NEGATIVE); SP GRAVITY URINE 1.021; TURBIDITY URINE CLEAR (CLEAR); UROBILINOGEN URINE NORMAL (NORMAL)
[2019-05-29 17:13] LABS: UR EPITHELIAL CELLS <10 /HPF (<10); URINE BACTERIA NEGATIVE /HPF; URINE RBC <10 /HPF (<10); URINE WBC <10 /HPF (<10)
[2019-05-29] MEDS: SODIUM CHLORIDE 0.9% INJ SCH (17:24)
[2019-05-29] MEDS: PROTONIX IV SCH (17:24)
--- NOTE | 2019-05-29 19:39 | HISTORY AND PHYSICAL ---
ADDENDUM: I have seen and examined Ms. Castillo today. The son and daughter were at the bedside at the time of the encounter Ms. Castillo is a 74-year-old female who was recently discharged from the surgery services on 05/14/2019 after she underwent laparoscopic with lysis of adhesion, mobilization of the splenic flexure and open low anterior colon resection, and loop diverting ileostomy. She has been home. She seems to be doing pretty well until for the past 3 days she has been progressively getting weak. She also says she has been having some nauseation and vomiting and dry heaving and loose output in her colostomy. Upon presenting she was evaluated and was found to be slightly tachycardic. Lab results suggested extreme dehydration with ROJAS. Her chest x-ray shows no acute disease. A CT scan of the abdomen and pelvis showed numerous air cyst in the lung bases, likely unusual pulmonary disease. ASSESSMENT: 1. Severe clinical volume depletion. 2. Acute kidney injury, most likely due to #1. 3. High anion gap metabolic acidosis with gap of 33. Lactate is slightly elevated. We will also check salicylate acetone levels for completion of the studies. 4. History of breast cancer status post right mastectomy. HR and OR positive. 5. Status post loop-diverting ileostomy. Please refer to the details of the history and physical which has been dictated by the ELECTRIC TRANSFER OPERATOR in the chart. cc: Frank Gordon MD
--- NOTE | 2019-05-29 19:45 | HISTORY AND PHYSICAL ---
PRIMARY CARE PROVIDER: Shayla Ronquillo MD GENERAL SURGEON: Tip Weir MD CHIEF COMPLAINT: Nausea and vomiting. HISTORY OF PRESENT ILLNESS: Ms. Castillo is a 74-year-old female, who carries a past medical history of carcinoma of the left breast status post mastectomy, hypertension, and a recent ileostomy for a colovaginal fistula on 04/19/2019. She was discharged home; however, she failed to thrive and developed nausea and vomiting and was readmitted to the hospital for dehydration and placed on IV hydration and was given antiemetics and Clinimix. Over the course of her hospitalization, she did improve and was able to hold down food as well as control her nausea; however, since Tuesday night, she reported she started with the nausea and vomiting, and her Phenergan was not helping any more. She did report some chills. There was unknown fever. She had had some weakness as well as some shortness of breath trying to walk across the room, but no reported chest pain. However, she does report that she has had the same amount of output from her ileostomy. She has been having a decrease in her urine output. Workup in the ED revealed an elevated white count, hyponatremia, acute renal failure. Her lactates were positive. She was treated for sepsis with 2 L bolus and broad-spectrum antibiotics. We will place her on the surgical floor, consult Dr. Weir as a courtesy, continue IV fluids and antiemetics, clear liquid diet. PAST MEDICAL HISTORY: 1. Breast cancer. 2. Hypertension. PAST SURGICAL HISTORY: 1. Mastectomy. 2. Hysterectomy. 3. Cholecystectomy. 4. x2. 5. History of pneumothorax requiring chest tube. 6. Ileostomy. SOCIAL HISTORY: She is retired. She has 2 children. No tobacco, alcohol, or illicit drug use. REVIEW OF SYSTEMS: A 12 point review of systems complete and negative, except for those mentioned in HPI. PHYSICAL EXAMINATION: VITAL SIGNS: Temperature is 97.3 degrees, heart rate 93, respirations 19, blood pressure 118/64, O2 is 100% on room air. GENERAL: Ms. Castillo is a pleasant 74-year-old female, who is sitting up in the bed in no acute distress. HEENT: Atraumatic, normocephalic. PERRL. NECK: Supple trachea midline. CARDIOVASCULAR: S1, S2 appreciated. No murmurs, gallops, or rubs noted. RESPIRATORY: Lung sounds clear bilaterally. GASTROINTESTINAL: Soft, nontender, nondistended. Positive bowel sounds 4 quadrants. She does have an ileostomy that is in place with a pink stoma with liquid brown BM in the bag. EXTREMITIES: Negative for edema. NEUROLOGIC: No focal deficits noted. DIAGNOSTIC STUDIES: CT of the abdomen and pelvis shows no acute process in the abdomen. Numerous air cysts in the lung bases likely represent an unusual pulmonary disease such BORREGO, stable since prior. EKG showed normal sinus rhythm. LABORATORY DATA: White count 13, hemoglobin 15, hematocrit 44, platelet count 489,000. Sodium 126, potassium 5.0, BUN 91, creatinine 4.6, blood glucose is 169. Magnesium 2.5. ProBNP 2625. Lipase was 153. Initial lactate 3.7. ASSESSMENT AND PLAN: 1. Sepsis, ruled in. Patient does meet criteria. Unsure if this is GI related or from a mild urinary tract infection. She was given 2 L of IV fluid and given broad- spectrum antibiotics in the ED. The patient did undergo recent surgery with ileostomy. 2. Dehydration secondary to nausea and vomiting. We will continue with IV fluids. 3. Acute renal failure secondary to nausea and vomiting and decreased intake. We will continue with aggressive IV hydration. We will check urine studies, as well as renal ultrasound in the a.m. We will consult Dr. Bain if no improvement. 4. Hyponatremia secondary to dehydration. We will continue with IV hydration. 5. Elevated lipase secondary to nausea/vomiting. We will recheck in the a.m. 6. Nausea and vomiting. We will continue with antiemetics with Zofran and Phenergan and continue on a clear liquid diet. 7. BORREGO seen on CAT scan, we will ask Dr. Weir to evaluate. Further recommendations to follow a physician evaluation and laboratory and diagnostic data. Dictated by BISMARK Al for Frank Gordon MD cc: MD Tip Downing MD Hiteshri S. Bhavsar, MD MTDD
[2019-05-29] MEDS: TYLENOL PO PRN (22:07)
[2019-05-30] MEDS: NS 1,000 ML IV SCH ×4 (00:30→23:29)
[2019-05-30] MEDS: PROTONIX IV SCH ×2 (04:50→15:25)
[2019-05-30] MEDS: SODIUM CHLORIDE 0.9% INJ SCH ×2 (04:50→15:25)
[2019-05-30 06:36] LABS: BASO# 0.01 X1000 (0.0-0.2); BASO% 0.2 % (0.0-0.8); EOS# 0.04 X1000 (0.0-0.7); EOS% 0.6 % (0.0-10.0); RDW 12.8 % (11.5-14.5)
[2019-05-30 07:12] LABS: ALB/GLOB RATIO 1.6; ALBUMIN 3.3 g/dL (3.5-5.0); CREATININE 2.6 mg/dL (0.5-0.9); MAGNESIUM 1.9 mg/dL (1.5-2.7); POTASSIUM 3.1 mmol/L (3.5-5.1); TOTAL BILIRUBIN 0.7 mg/dL (0.20-1.00); TOTAL PROTEIN 5.4 g/dL (6.3-8.3)
[2019-05-30 07:24] LABS: CALCIUM 7.4 mg/dL (8.8-10.2)
[2019-05-30 07:52] LABS: HEMATOCRIT 27.8 % (37.0-47.0); HEMOGLOBIN 9.5 g/dL (12.0-16.0); IMM GRAN# 0.02 X1000 (0.0-0.04); IMM GRAN% 0.3 % (0.0-0.5); LYMPH# 0.96 X1000 (1.2-3.4); LYMPH% 15.2 % (20.5-51.1); MCH 31.1 PG (27-31); MCHC 34.2 g/dL (33-37); MCV 91.1 FL (81-99); MONO# 0.93 X1000 (0.11-0.59); MONO% 14.7 % (1.7-9.3); MPV 8.6 FL (7.4-10.4); NEUT# 4.37 X1000 (1.4-6.5); PLT 307 X1000 (130-400); RBC 3.05 XMIL (4.2-5.4); WBC 6.33 X1000 (4.8-10.8)
--- NOTE | 2019-05-30 09:25 | Diag Imaging Result Doc PS360 ---
US RENAL 2 (RETROPER) COMPLETE - 05/30/2019 INDICATION: ARF TECHNIQUE: COMPARISON: CT from 05/29/2019 FINDINGS: There is fluid in the left renal collecting system stable from the prior CT. The appearance suggests a peripelvic cyst, although UPJ obstruction cannot be excluded. The kidneys have a somewhat lobular contour bilaterally suggesting chronic medical renal scarring. The kidneys also are a bit hyperechoic. Renal sizes are normal. The right kidney measures 9.3 x 4.5 x 4.2 cm. The left kidney measures 11.1 x 4.8 x 6 cm. Urinary bladder is decompressed by a Patel catheter and otherwise normal. IMPRESSION: 1. 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 Stable from prior. 2. Hyperechoic kidneys suggesting chronic medical renal disease. Mild renal cortical scarring. No significant renal atrophy. Electronically signed by Ortiz Martin 05/30/2019 9:22 AM
--- NOTE | 2019-05-30 20:54 | GENERAL SURGERY PROGRESS NOTE ---
DATE: 05/30/2019 SUBJECTIVE: Ms. Castillo feels better today. She has been making satisfactory urine. She is afebrile with stable hemodynamics, blood pressure 106/60. Her white count is down to 6300, hemoglobin 9.5 hematocrit 28. Indicating rehydration, her BUN is down to 66 from 91, creatinine down to 2.6 from 4.6. Lactate has come down to 1.8. ASSESSMENT AND PLAN: She has obviously improved. We will continue with hydration. It is certainly okay with me to advance her diet. cc: Tip Weir MD
--- NOTE | 2019-05-30 21:33 | GASTROENTEROLOGY CONSULTATION ---
DATE: 05/30/2019 SUBJECTIVE: This morning Ms. Castillo refers to be doing a lot better. She feels stronger. Denies any complaints. OBJECTIVE: Vital signs: Blood pressure is 100/60, pulse of 84, respirations 16, temperature 98.7 degrees. General: Ms. Castillo is a 74-year-old female. She is in bed. No distress. Mucosa is pink and moist. Anicteric. Acyanotic. Neck: Neck is supple. Chest: Good air entry bilaterally. There are no crepitations. No rhonchi. Cardiovascular: Regular rate and rhythm. Abdomen: Is soft. There is an ostomy on the right. Old midline surgical scar. Extremities: No pedal edema. PACK ROOM OPERATOR: Patient is awake, alert, and oriented. LABORATORY DATA: WBC is down to 6.33, hemoglobin is 9.6, platelet count of 307,000. Chemistry is also reviewed. Creatinine is down to 2.6. BUN is also down to 66 from 91. ASSESSMENT: 1. Severe clinical volume depletion improving. 2. Acute kidney injury secondary to #1. Creatinine is downward trend. Patient is making adequate urine. 3. High anion gap metabolic acidosis, improved. Gap is down to 16. 4. Lactic acidosis, most likely due to severe dehydration. Improved. 5. History of breast cancer status post right mastectomy, HR positive and DC positive. 6. Status post diverting ileostomy. The ileostomy is functioning well. 7. Gram-negative jose in the urine. Patient is completely asymptomatic. I think this is asymptomatic bacteriuria that does not need to be treated. PLAN: So today we are going to continue with the IV fluids. Recheck her electrolytes tomorrow. We have advanced her diet to full liquid diet. cc: Frank Gordon MD
[2019-05-30] MEDS: TYLENOL PO PRN (23:29)
[2019-05-31] MEDS: SODIUM CHLORIDE 0.9% INJ SCH ×2 (06:32→17:28)
[2019-05-31] MEDS: PROTONIX IV SCH ×2 (06:32→17:28)
[2019-05-31] MEDS: NS 1,000 ML IV SCH (06:33)
[2019-05-31 06:55] LABS: HEMATOCRIT 25.4 % (37.0-47.0); HEMOGLOBIN 8.6 g/dL (12.0-16.0); MCH 31.9 PG (27-31); MCHC 33.9 g/dL (33-37); MCV 94.1 FL (81-99); MPV 8.9 FL (7.4-10.4); RBC 2.7 XMIL (4.2-5.4); RDW 13.4 % (11.5-14.5); WBC 5.15 X1000 (4.8-10.8)
[2019-05-31 07:05] LABS: CALCIUM 7.1 mg/dL (8.8-10.2); CREATININE 1.4 mg/dL (0.5-0.9)
[2019-05-31 07:45] LABS: POTASSIUM 2.5 mmol/L (3.5-5.1)
[2019-05-31] MEDS ORDERED: MAGNESIUM SULFATE 2 GM/S.W.I. 2 GM/50 ML IVPB IV ONE (08:49)
[2019-05-31] MEDS ORDERED: KLOR-CON PO ONE (08:49)
[2019-05-31] MEDS: POTASSIUM CHLORIDE 20 MEQ/SWI 20 MEQ/100 ML IVPB IV SCH ×2 (09:09→11:13)
[2019-05-31] MEDS: SODIUM BICARBONATE 8.4% 150 MEQ in D5W 1,000 ML IV SCH ×2 (10:39→21:59)
--- NOTE | 2019-05-31 14:37 | PROGRESS NOTE ---
DATE: 05/31/2019 SUBJECTIVE: This morning, Ms. Castillo refers to be feeling a whole lot better, denies any new complaints. She said her ostomy has just been emptied. OBJECTIVE: Vital signs: Her vitals, blood pressure is 99/47, pulse of 79, respiration is 14, temperature is 98.4. General: On general exam, Ms. Castillo is a 74-year-old female. She was in bed. No distress. HEENT: Mucosa is pink and moist. Anicteric. Acyanotic. Neck: Supple. Chest: Good air entry bilateral. There was no crepitations, no rhonchi, no accessory muscle use. Cardiovascular: Regular rate and rhythm. There is no murmurs, no rubs, no gallops. GI: Abdomen is soft, nontender. There is an old midline surgical scar which is noted. There is also an ostomy on the right side, the bag has just been emptied. Extremities: No pedal edema. GANG DRILL PRESS OPERATOR: The patient is awake, alert, and oriented. LABORATORY DATA: WBC is down to 5.15, hemoglobin is 8.6, platelet count of 273. Chemistry is also reviewed. Potassium was 2.5 this morning, bicarbonate is 13, creatinine is down to 1.4, gap of 16. The urine culture has come back Escherichia coli, however, the patient is asymptomatic so we will not treat it. ASSESSMENT: 1. Severe clinical volume depletion improving. 2. Acute kidney injury secondary to number 1. Creatinine continues to trend down. 3. High anion gap metabolic acidosis. This is improving. Gap is down to 16, however, the bicarbonate continues to be remarkably low so we will change the fluid to include bicarbonate. 4. Lactic acidosis secondary to severe dehydration improved. 5. History of breast cancer status post right mastectomy, ER positive and VT positive. 6. Status post diverting ileostomy, which is functioning well. 7. Escherichia coli asymptomatic bacteruria noted. 8. Hypokalemia. We will replace this. So in general, I feel Ms. Castillo is doing a whole lot better. She is marking adequate urine. She is feeling well. Her renal function continues to improve. We have changed the fluids to include bicarbonate and we have also changed her diet to GI soft. I think hopefully tomorrow we can discharge Ms. Castillo if she continues to show improvement. cc: Frank Gordon MD
[2019-06-01] MEDS: SODIUM CHLORIDE 0.9% INJ SCH (06:08)
[2019-06-01] MEDS: PROTONIX IV SCH (06:08)
[2019-06-01 06:45] LABS: HEMATOCRIT 27.8 % (37.0-47.0); HEMOGLOBIN 9.6 g/dL (12.0-16.0); MCHC 34.5 g/dL (33-37); MCV 92.7 FL (81-99); MPV 8.9 FL (7.4-10.4); RDW 13.3 % (11.5-14.5); WBC 6.21 X1000 (4.8-10.8)
[2019-06-01 07:24] LABS: ALBUMIN 2.7 g/dL (3.5-5.0); CALCIUM 7.6 mg/dL (8.8-10.2); PHOSPHORUS 1.6 mg/dL (2.7-4.5); POTASSIUM 2.9 mmol/L (3.5-5.1)
[2019-06-01 07:26] VITALS: BP 103/49
[2019-06-01] MEDS ORDERED: NEUTRA-PHOS PO SCH (09:00)
--- NOTE | 2019-06-02 17:01 | DISCHARGE SUMMARY ---
ADMISSION DATE: 05/29/2019 DISCHARGE DATE: 06/01/2019 DISPOSITION: Home. FOLLOWUP: Will be 1. Dr. Ronquillo. 2. Dr. Weir. CONSULTATION: Surgery was consulted, patient was seen by Dr. Weir. INVASIVE PROCEDURES: None. IMAGING STUDIES OF SIGNIFICANT: 1. A chest x-ray showed no acute disease. 2. Abdomen an pelvis CT scan shows no acute process, numerous air cyst in the lung likely represent unusual pulmonary disease. 3. A renal ultrasound shows probable pelvic cyst versus congenital obstruction. ADMISSION DIAGNOSIS: 1. Severe clinical volume depletion. 2. Acute kidney injury. 3. High anion gap metabolic acidosis. DIAGNOSIS AT THE TIME OF DISCHARGE: 1. Acute kidney injury on presentation secondary to severe clinical volume depletion. 2. High anion gap metabolic acidosis resolved. 3. Lactic acidosis secondary to severe dehydration. 4. History of breast cancer status post right mastectomy ER/IA positive. 5. Status post diverting ileostomy. 6. Escherichia coli asymptomatic bacteriuria. 7. Hypokalemia improved. PRESENTING COMPLAINT: Was nausea, vomiting. HISTORY OF PRESENTING COMPLAINT: Ms. Castillo 74-year-old female presented to the emergency department because of nausea, vomiting was found to be extremely dehydrated with abnormal laboratory data including creatinine that had gone up to 4.6 from 0.8 on just last month was admitted for further medical care. HOSPITAL COURSE: Ms Castillo was admitted to the medical floor, was fluid resuscitated. Because she just had a recent surgery she was evaluated by surgery who did not think that there was any indication for surgical intervention. She progressively improved on hydration status and her lab works as well. Today she refers to be doing a whole lot better. She has been up and walked about 200 feet with physical therapy. She refers to be feeling a whole lot better and stronger, we think she is fairly stable to be discharged today. Her current vitals blood pressure is 103/49, pulse of 78, respiration is 16, temperature 98.5 degrees. Clinically she looks well hydrated. Her current laboratory data has also been reviewed. Her sodium is 139, potassium is 2.9 that has been replaced, chloride is 104, bicarb is 20, creatinine is down to 1.0 and BUN is 13. Her ostomy is putting out adequately. She is going to be discharged in stable condition. Her blood pressure medication lisinopril with hydrochlorothiazide has been withheld. CURRENT DISCHARGE MEDICATIONS: Include 1. Calcium vitamins. 2. Simvastatin 40 mg p.o. at bedtime. 3. Aromasin 25 mg p.o. daily. 4. Neutra-Phos 1 tablet 4 times per day. 5. As I said hydrochlorothiazide with lisinopril has been withheld because of recent renal failure and almost normal blood pressure reading throughout the hospital course, occasional hypotension. TIME SPENT: 36 minutes. cc: MD Dr. Destin Lassiter
== END 2019-06-01 11:56 | disposition home health service (06) | DRG 683 ==
LOC: ED 10:04 → 4N 15:01
PROVIDERS: ATTEND Internal Medicine

== ENCOUNTER 2019-08-07 04:12 | Inpatient (IN) ==
[2019-08-02 13:36] LABS: HEMATOCRIT 37.9 % (37.0-47.0); HEMOGLOBIN 12.1 g/dL (12.0-16.0); MCH 31.3 PG (27-31); MCHC 31.9 g/dL (33-37); MCV 98.2 FL (81-99); MPV 8.8 FL (7.4-10.4); RBC 3.86 XMIL (4.2-5.4); RDW 13.3 % (11.5-14.5); WBC 5.07 X1000 (4.8-10.8)
[2019-08-02 14:24] LABS: CALCIUM 9.1 mg/dL (8.8-10.2); CREATININE 1.1 mg/dL (0.5-0.9); POTASSIUM 4.2 mmol/L (3.5-5.1)
[2019-08-07] MEDS ORDERED: INVANZ 1 GM/NS 1 GM/50 ML IVPB ONE (06:02)
[2019-08-07] MEDS ORDERED: LR 1,000 ML ONE (06:02)
[2019-08-07] MEDS ORDERED: DIPRIVAN 1% ONE (06:39)
[2019-08-07] MEDS ORDERED: ROBINUL ONE ×2 (06:39→07:39)
[2019-08-07] MEDS ORDERED: XYLOCAINE-MPF 2% ONE (06:39)
[2019-08-07] MEDS ORDERED: QUELICIN (DOSE) ONE (06:41)
[2019-08-07] MEDS ORDERED: OFIRMEV 1000 MG/ISOTONIC SOLN 1,000 MG/100 ML BOTTLE ONE (07:03)
[2019-08-07] MEDS ORDERED: ZEMURON ONE (07:06)
[2019-08-07] MEDS ORDERED: TORADOL ONE (07:06)
[2019-08-07] MEDS ORDERED: ZOFRAN ONE (07:06)
[2019-08-07] MEDS ORDERED: DECADRON ONE (07:06)
[2019-08-07] MEDS ORDERED: MARCAINE 0.5% PF ONE (07:12)
[2019-08-07 07:38] LABS: URINE SOURCE CATH
[2019-08-07] MEDS ORDERED: NEOSTIGMINE ONE (07:39)
[2019-08-07 07:56] LABS: BILIRUBIN URINE NEGATIVE (NEGATIVE); BLOOD URINE NEGATIVE (NEGATIVE); COLOR YELLOW; GLUCOSE URINE NEGATIVE (NEGATIVE); KETONE URINE NEGATIVE (NEGATIVE); LEUKOCYTES URINE NEGATIVE (NEGATIVE); NITRITE URINE NEGATIVE (NEGATIVE); PROTEIN URINE 30 mg/dL (NEGATIVE); SP GRAVITY URINE 1.021; TURBIDITY URINE CLEAR (CLEAR); UROBILINOGEN URINE NORMAL (NORMAL)
[2019-08-07 08:00] LABS: UR EPITHELIAL CELLS <10 /HPF (<10); URINE BACTERIA NEGATIVE /HPF; URINE RBC <10 /HPF (<10); URINE WBC <10 /HPF (<10)
[2019-08-07] MEDS ORDERED: NS + KCL 20 MEQ 1,000 ML ONE (08:03)
[2019-08-07 08:17] LABS: URINE CASTS NONE SEEN
[2019-08-07] MEDS ORDERED: ULTRAM PO PRN (08:47)
[2019-08-07] MEDS ORDERED: ZOFRAN IV PRN (08:47)
[2019-08-07] MEDS: NS + KCL 20 MEQ 1,000 ML IV SCH ×2 (09:00→22:15)
[2019-08-07] MEDS: CENTRUM SILVER PO SCH (10:02)
[2019-08-07] MEDS: OFIRMEV 1000 MG/ISOTONIC SOLN 1,000 MG/100 ML BOTTLE IV SCH ×3 (10:02→22:16)
[2019-08-07] MEDS: PERIDEX MT SCH ×2 (10:02→22:16)
--- NOTE | 2019-08-07 10:17 | OPERATIVE NOTE ---
PROCEDURE DATE: 08/07/2019 PROCEDURE: Closure of ileostomy. SURGEON: Tip Weir MD. FRONT DESK ASSOCIATE: Donaldo Roman RN. PREOPERATIVE DIAGNOSIS: History of ileostomy, history of colon resection for colovaginal fistula. POSTOPERATIVE DIAGNOSIS: History of ileostomy, history of colon resection for colovaginal fistula. DESCRIPTION OF PROCEDURE: Satisfactory general endotracheal anesthesia. PROCEDURE IN DETAIL: The abdomen was prepped and draped in a sterile fashion. We anesthetized the skin on each side of the ileostomy for a length of 2.5 cm using 0.5 Marcaine without epinephrine. We then incised the skin, medial and lateral to the ileostomy. We then incised the mucocutaneous border circumferentially to free up the ilium from the surrounding skin. We then used electrocautery to achieve satisfactory hemostasis. We then dissected from superficial to deep all the way to the fascia. We then carefully dissected around the bowel at the fascia level in order to free the bowel completely up from the surrounding fascia. This time we obtained a TIMO 80 blue cartridge and did a [id number] stapled anastomosis between the limbs of the loop ileostomy. We then grasped the open end of the loop and then stapled it off with a TA 45 blue cartridge. We then inverted that staple line using 3-0 silks in a Lembert fashion. This thereby completed a [id number] stapled ileostomy closure. We then dropped that stapled ilium back into the abdominal cavity and it laid freely in the abdominal cavity. A good lumen was present as I had felt of it before we put it inside. We then closed the 1st layer of the peritoneum and the transversalis muscle with 0 Polysorb interrupted stitches. We then closed the internal oblique muscle and external oblique fascia with 0 Surgilon stitches. We irrigated out the subcutaneous tissue copiously, closed the subcutaneous tissue with 3-0 Polysorb. Once again, injected 0.5 Marcaine plain into the subcutaneous tissue for incisional pain relief. We then closed the skin transversely with tomas. A sterile island dressing was applied. She tolerated it well and was sent to the recovery room in satisfactory condition. cc: Tip Weir MD
[2019-08-07] MEDS: AROMASIN PO SCH (12:56)
[2019-08-07] MEDS: LOVENOX SUBQ SCH (22:16)
[2019-08-08] MEDS: OFIRMEV 1000 MG/ISOTONIC SOLN 1,000 MG/100 ML BOTTLE IV SCH (04:36)
[2019-08-08 07:12] LABS: BASO# 0.01 X1000 (0.0-0.2); BASO% 0.1 % (0.0-0.8); EOS# 0.01 X1000 (0.0-0.7); EOS% 0.1 % (0.0-10.0); HEMATOCRIT 31.2 % (37.0-47.0); LYMPH# 0.66 X1000 (1.2-3.4); MCH 32.1 PG (27-31); MCHC 32.1 g/dL (33-37); MONO# 0.96 X1000 (0.11-0.59); MONO% 10.2 % (1.7-9.3); MPV 9.4 FL (7.4-10.4); NEUT# 7.79 X1000 (1.4-6.5); NEUT% 82.6 % (42.2-75.2); PLT 291 X1000 (130-400); RBC 3.12 XMIL (4.2-5.4); RDW 13.4 % (11.5-14.5); WBC 9.43 X1000 (4.8-10.8)
[2019-08-08] MEDS ORDERED: NORCO-10 PO PRN (07:41)
[2019-08-08 07:47] LABS: CALCIUM 8.4 mg/dL (8.8-10.2); CREATININE 1.1 mg/dL (0.5-0.9); POTASSIUM 4.6 mmol/L (3.5-5.1)
[2019-08-08] MEDS: AROMASIN PO SCH (08:15)
[2019-08-08] MEDS: CENTRUM SILVER PO SCH (08:15)
[2019-08-08] MEDS: PERIDEX MT SCH ×2 (08:15→21:22)
[2019-08-08] MEDS: NS + KCL 20 MEQ 1,000 ML IV SCH ×2 (08:20→12:08)
--- NOTE | 2019-08-08 10:27 | GENERAL SURGERY PROGRESS NOTE ---
DATE: 08/08/2019 She is afebrile, heart rate is 72, blood pressure 91/49. Her urine output has been satisfactory. She denies any nausea. Her abdomen is slightly tympanitic. White count is 9400, hemoglobin 10, hematocrit 31. The plan today will be to take the Patel out. Reduce her IV rate and start her on clear liquids. We will see how she does. cc: Tip Weir MD
[2019-08-08] MEDS: LOVENOX SUBQ SCH (21:22)
[2019-08-09] MEDS: NS + KCL 20 MEQ 1,000 ML IV SCH (04:54)
[2019-08-09] MEDS ORDERED: NS + KCL 20 MEQ 1,000 ML IV SCH (07:42)
[2019-08-09] MEDS: CENTRUM SILVER PO SCH (10:02)
[2019-08-09] MEDS: PERIDEX MT SCH ×2 (10:02→20:10)
[2019-08-09] MEDS: AROMASIN PO SCH (10:02)
[2019-08-09] MEDS: LOVENOX SUBQ SCH (20:10)
[2019-08-10 07:23] LABS: BASO# 0.02 X1000 (0.0-0.2); BASO% 0.5 % (0.0-0.8); EOS# 0.22 X1000 (0.0-0.7); HEMATOCRIT 30.8 % (37.0-47.0); HEMOGLOBIN 9.5 g/dL (12.0-16.0); LYMPH# 0.81 X1000 (1.2-3.4); LYMPH% 18.4 % (20.5-51.1); MCH 31.1 PG (27-31); MCHC 30.8 g/dL (33-37); MONO# 0.68 X1000 (0.11-0.59); MONO% 15.4 % (1.7-9.3); MPV 9.3 FL (7.4-10.4); NEUT# 2.68 X1000 (1.4-6.5); NEUT% 60.7 % (42.2-75.2); PLT 270 X1000 (130-400); RBC 3.05 XMIL (4.2-5.4); RDW 13.4 % (11.5-14.5); WBC 4.41 X1000 (4.8-10.8)
[2019-08-10 07:29] VITALS: BP 115/60
[2019-08-10 08:07] LABS: AGAP 9; BUN 7 mg/dL (8-22); CHLORIDE 111 mmol/L (98-107); COSMO 279; CREATININE 0.9 mg/dL (0.5-0.9); ESTIMATED GFR > 60; GLUCOSE 98 mg/dL (70-104); POTASSIUM 3.4 mmol/L (3.5-5.1); SODIUM 141 mmol/L (136-145); TCO2 21 mmol/L (25-35)
[2019-08-10] MEDS: AROMASIN PO SCH (09:45)
[2019-08-10] MEDS: CENTRUM SILVER PO SCH (09:50)
[2019-08-10] MEDS: PERIDEX MT SCH (10:27)
--- NOTE | 2019-08-10 14:50 | GENERAL SURGERY PROGRESS NOTE ---
DATE: 08/10/2019 Ms. Castillo is doing okay. She slept better last night. She is still passing flatus. She denies any crampy pain. She ate solid food yesterday without nausea. Her laboratory data is pending thus far. Her bandage is dry. Bowel sounds are present. Assuming that her labs are reasonable then I will discharge her today. She will return to see me in the office next week. We discussed activity, wound care and diet. cc: Tip Weir MD
--- NOTE | 2019-08-18 19:39 | DISCHARGE SUMMARY ---
ADMISSION DATE: 08/07/2019 DISCHARGE DATE: 08/10/2019 PRIMARY DISCHARGE DIAGNOSIS: History of colovaginal fistula repair with a colon resection and diverting loop ileostomy. PRIMARY PROCEDURE: Closure of loop ileostomy. This is a 74-year-old who had undergone a previous colon resection for repair of a colovaginal fistula and we did a diverting loop ileostomy to protect the anastomosis. She is now ready for closure of the ileostomy. She underwent the above-noted procedure on the . On the 1st postoperative day, we took her Patel catheter out and started her on clear liquids. We advanced her diet subsequently. By 08/10/2019 she was passing flatus and eating solid food. So it was felt she could be discharged home. Her wound was fine. She was instructed regarding wound care and diet. She will return to see me in the office in a week. cc: Tip Weir MD
== END 2019-08-10 09:43 | disposition home health service (06) | DRG 331 ==
LOC: SURHOLD 04:12 → 4N 07:57
PROVIDERS: ADMIT Surgery; ATTEND Surgery